=== PATIENT | female | born 1940 | race Caucasian/White ===

== ENCOUNTER → 2016-12-22 | Outpatient (CLI) | payer MEDICARE ==
--- NOTE | 2016-12-22 21:54 | CONS ---
DATE OF CONSULTATION: REASON FOR CONSULTATION: Sleep apnea. PRIMARY CARE PHYSICIAN: Dr. Carranza This is a 76-year-old female patient who was referred by her primary care physician due to a concern of ongoing obstructive sleep apnea. The patient was evaluated in our sleep center back in 2012 and back then the patient was seen by Dr. Rhodes. The sleep study back then showed an apnea-hypopnea index of 18 consistent with moderately severe disease and the patient's disease was worse during REM where her AHI during REM was as high as 67.3. At that time, the patient was given CPAP at a pressure of 8 cm of water, which the patient used briefly and she was unable to tolerate and she ultimately returned to her machine and quit the treatment. Over the past 4 years, her condition has gotten worse and she is coming in for re-evaluation such that she is very drowsy and sleepy during the day and at times she is having difficulty with memory and concentration. I have noted that the patient has lost weight. She used to weigh 208 at the time of initial evaluation in 2012 and currently she is down to 194 and her BMI is 40.5. She still snores and she is still having occasional nighttime awakenings. She goes to bed around 1:00 a.m. and she wakes up at 8:30 a.m. in the morning. No sleepwalking. No sleeptalking. No grinding of the teeth. She wakes up with a dry mouth. No waking up from sleep, gasping for air or choking sensation. No restlessness in the lower extremities. PAST MEDICAL HISTORY: 1. Obstructive sleep apnea; details discussed above. Her disease was moderate to severe with an apnea-hypopnea index of 18.4 back in 2012. 2. Obesity with interval weight loss. 3. Depression. 4. Hyperlipidemia. 5. Hypertension. 6. Osteoarthritis. PAST SURGICAL HISTORY: Bilateral knee replacement, and hip replacement and hysterectomy. SOCIAL HISTORY: The patient has a 25 pack-year smoking, she is an ex-smoker. No history of alcohol. No history of IV drugs. FAMILY HISTORY: Negative for sleep apnea. Outpatient medication list includes: 1. A combination of the Bupropion 150 mg p.o. daily. 2. Atorvastatin 80 mg p.o. daily. 3. Aspirin 81 mg p.o. daily. 4. Klor-Con 10 mEq p.o. daily. 5. Hydrochlorothiazide 25 mg half tablet 3 times a week. 6. Polyethylene glycol. REVIEW OF SYSTEMS: Twelve-point review of systems was done. Positive findings were all mentioned above in the history of present illness. BP is 149/80, pulse 89, respirations 16, temperature 99.1, saturation 97% on room air. BMI is 40.5. Childress score is 7. Weight is 194. Height is 68 inches. Neck size is 16 and a half. GENERAL APPEARANCE: Calm, comfortable. HEENT: Short neck, crowding posterior pharynx. There is no goiter, neck masses. LUNGS: Clear to auscultation. HEART: Heart sounds are regular rate and rhythm. Normal S1, S2. No S3. No murmurs. ABDOMEN: Soft, nontender. No organomegaly. EXTREMITIES: No edema. No cyanosis, or clubbing. IMPRESSION: 1. Obstructive sleep apnea, history of and the patient is coming in for re-evaluation. I noted some weight loss over the past 3 years and this is in the order of 15 pounds. Nevertheless, the patient seems to have become more symptomatic and ( ) that she would need a re-evaluation. Her baseline AHI back in 2012 was 18.0. 2. Hyperlipidemia. 3. Hypertension. 4. Generalized anxiety disorder. PLAN: 1. Discuss the findings with the patient. 2. Encourage further weight loss. 3. Will need a re-evaluation to reassess the presence of sleep apnea and its severity, based on that, further recommendations will be done once the study is completed.
== END | disposition home or self-care (01) ==
LOC: SLEEP 13:52
PROVIDERS: ATTEND Internal Medicine Critical Care Medicine
DX: G47.33 Obstructive sleep apnea (adult) (pediatric) (principal); E78.5 Hyperlipidemia, unspecified; I10 Essential (primary) hypertension; F41.1 Generalized anxiety disorder; E66.9 Obesity, unspecified; Z68.41 Body mass index [BMI] 40.0-44.9, adult; Z87.891 Personal history of nicotine dependence
CPT/HCPCS: 99211

== ENCOUNTER → 2017-03-30 | Outpatient (CLI) | payer MEDICARE ==
--- NOTE | 2017-03-31 09:29 | PN ---
Jennifer is a 76-year-old female patient who was diagnosed having mild obstructive sleep apnea with an AHI of 9.3. I thought her disease was mild in severity. Yet the patient had increased sleepiness and she opted to try CPAP therapy knowing that she seems to be quite symptomatic from her disease. She had comorbid conditions including depression, hyperlipidemia, hypertension and generalized anxiety disorder. Based on that, the patient will undergo a CPAP titration and she was titrated to a CPAP pressure of 9 cm of water. Today she is coming in for a compliancy check. I noted that the patient has not been able to use her CPAP machine at all. Upon further questioning, the patient reported increased pressure and leaks around her full face mask. Initially she was using a Simplus full face mask and later on she was given an Roopa view. Upon further investigation, it is seen that the patient's CPAP machine was set at a pressure of 14 cm of water. I had a lengthy discussion with the patient. I suggested lowering the pressure and I reviewed the CPAP titration. Again, I offered her a CPAP pressure of 7 cm of water. I think this drop in pressure would help her tolerability and compliance. For that reason, the patient opted to restart the CPAP with updated pressure. I also noted that the patient EPR was inactivated and I activated that level of 4 and I switched the patient's CPAP machine to an automatic mode with a minimum pressure of 4 and maximum pressure of 7. She was agreeable to that, and she asked to be seen in follow-up. BP 142/74, pulse 90, respirations 16, temperature 97.7. Weight is 119. GENERAL APPEARANCE: Calm, comfortable. HEENT: Crowding of posterior pharynx. There is no goiter or neck masses. LUNGS: Clear to auscultation. HEART: Heart sounds are regular rate and rhythm. Normal S1, S2. ABDOMEN: Soft, nontender. No organomegaly. EXTREMITIES: No clubbing. No cyanosis or clubbing. IMPRESSION: Obstructive sleep apnea, mild with an AHI of 9.3 with suboptimal compliance for the reasons mentioned above. PLAN: 1. Continue Brett view full face mask. 2. Change the patient to an automatic mode with a minimum pressure of 4. Maximum pressure was 7. 3. Offer EPR of 3. 4. Lower CPAP pressures down to 7 centimeters of water. 5. See me back in 4 to 6 weeks' time and hopefully with the above mentioned changes should optimize her ROSY treatment.
== END ==
LOC: SLEEP 14:38
PROVIDERS: ATTEND Internal Medicine Critical Care Medicine
DX: G47.33 Obstructive sleep apnea (adult) (pediatric) (principal)

== ENCOUNTER → 2017-05-11 | Outpatient (CLI) | payer MEDICARE ==
--- NOTE | 2017-05-11 18:19 | PN ---
DATE OF SERVICE: 05/11/2017 This is a 76-year-old female patient diagnosed having ROSY with an AHI of 9.3. Her disease was mild in nature; however, she was having increased sleepiness in the daytime, hypersomnia. Based on that, I gave this patient an AutoCPAP unit which was adjusted to a minimum pressure of 3 and maximum pressure of 7. I made some adjustments also early on for this patient and gave her an Roopa View full- face mask to facilitate her treatment. Unfortunately she has not been able to tolerate the CPAP therapy, and she thinks her sleep quality has gotten worse since she has been on it. I noted that she has also lost around 22 to 24 pounds since her last evaluation here in my office. As such, she is feeling better and she is much more alert and awake during the day despite not using her CPAP treatment for now. No complaints otherwise for now. She is not having any significant sleep interruption or loud snoring. BP is 143/76, pulse 80, respiration 16. Temperature is 97.8. BMI 37.7. Weight is 186. GENERAL APPEARANCE: Calm, comfortable. HEENT: Negative for JVD. No goiter or neck masses. Lungs are clear to auscultation. Heart sounds are regular rate and rhythm. Normal S1, S2. Abdomen is soft, non-tender. No organomegaly. EXTREMITIES: No edema. No cyanosis or clubbing. IMPRESSION: 1. Mild obstructive sleep apnea with an AHI of 9.3 with successful 24- to 26- pound weight loss. 2. Hypersomnia, improved. 3. Depression. 4. Hyperlipidemia. 5. Hypertension. 6. Generalized anxiety disorder. PLAN: This patient failed CPAP therapy; however, she has been successful in losing weight. Will encourage further weight loss. She does not have to receive any active treatment for her obstructive sleep apnea at this point. She will contact me back, should there be any worsening in her sleep quality for now. Her symptoms are not affecting her quality of life. As such, the CPAP therapy will be stopped and the machine will be returned to [facility]. [facility]
== END ==
LOC: SLEEP 13:32
PROVIDERS: ATTEND Internal Medicine Critical Care Medicine
DX: G47.33 Obstructive sleep apnea (adult) (pediatric) (principal); F32.9 Major depressive disorder, single episode, unspecified; E78.5 Hyperlipidemia, unspecified; I10 Essential (primary) hypertension; F41.9 Anxiety disorder, unspecified; G47.10 Hypersomnia, unspecified